=== PATIENT | male | born 1960 | race Two or more races ===

== ENCOUNTER 2020-08-01 12:12 | Emergency (ER) | payer MEDICARE, SELFPAY ==
[2020-08-01 12:50] VITALS: BP 130/79; PULSE 103; RESP 16; TEMP 36.6; O2SAT 100
--- NOTE | 2020-08-01 12:58 | ED.GENADULT ---
HPI - General Adult General Chief complaint: Extremity Injury, Lower Stated complaint: Right foot toe pain Time Seen by Provider: 08/01/20 12:58 Source: patient and RN notes reviewed Mode of arrival: ambulatory Limitations: no limitations History of Present Illness HPI narrative: 60-year-old Roman Catholic male presents with right great toe, swelling, erythema, and pain for the past 3 weeks days. Eddie says he had a pedicure and redness and swelling started, currently on Clindamycin (for 3 days) per his PMD. Numbness and tingling to toes 1-3 intermittently. No pain with weight bearing. No radiation of pain. No loss of mobility. No exacerbating factors. Relieving factor is activity. No fever or chills. No suspected foreign body. The patient reports he have not been diagnosed with COVID-19. The patient reports he is not waiting for the results of a COVID-19 lab test. The patient reports he do not have chills, weakness, or fatigue. The patient reports he do not have a new or worsening cough or shortness of breath. Denies chest pain. The patient reports he do not have any rhinorrhea, congestion, loss of taste, sore throat, nausea, vomiting, abdominal pain, and diarrhea. Tolerating po intake well. Denies recent traveling. Denies concerns for COVID-19 or exposures been home with limited outdoor exposure except for essential household needs and return home. At this time, patient is not suspected of having COVID-19. Some parts of this dictation were generated by voice recognition software and may contain typographical and/or grammatical inaccuracies. Related Data Home Medications Medication Instructions Recorded Confirmed clindamycin HCl 300 mg PO Q8H 08/01/20 08/01/20 lisinopril 10 mg PO DAILY 08/01/20 08/01/20 metformin 1,000 mg PO BID 08/01/20 08/01/20 Allergies Allergy/AdvReac Type Severity Reaction Status Date / Time No Known Allergies Allergy Verified 08/01/20 12:21 Review of Systems Review of Systems: Narrative: CONSTITUTIONAL: Denies fever, chills, sweats. EYES: Denies visual changes, redness, discharge. ENT: Denies rhinorrhea, congestion, sore throat, otalgia. CARDIOVASCULAR: Denies chest pain, palpitations, edema. RESPIRATORY: Denies dyspnea, wheezing, cough. GASTROINTESTINAL: Denies abdominal pain, nausea, vomiting, diarrhea. SKIN: Denies rash or itching. MUSCULOSKELETAL: Denies acute back pain or myalgia. Complains of RT great toe swelling, erythema, and tenderness. Numbness and tingling to toes 1-3. NEUROLOGIC: Denies numbness or focal weakness. PSYCHIATRIC: Denies anxiety or depression. All systems reviewed & are unremarkable except as noted in HPI and below PMFSH Past Medical History Medical History (Updated 08/01/20 @ 13:21 by LAMIN Cuevas) Back pain Diabetes Hypertension Surgical History Surgical History (Updated 08/01/20 @ 13:21 by LAMIN Cuevas) History of knee surgery meniscus surgery bilateral History of spinal surgery X3 Family History Family History (Updated 08/01/20 @ 13:22 by LAMIN Cuevas) Father , ole age No problems noted. Mother , old age No problems noted. Social History Social History (Updated 08/01/20 @ 13:25 by LAMIN Cuevas) Smoking status: Former smoker Tobacco type: cigarettes Second hand tobacco smoke exposure: No Smoking end date: 10/10/11 Alcohol intake: never Substance use: never Living arrangements: with family Occupation/Education: other Additional occupation/education comments: disable Gender identity (if verbalized by the patient): Male Comments At time of signature, agree with nurse past medical, surgical, social, and family history. There is relevant patient's past medical history pertinent to the presenting complaint, no relevant family history pertinent to the presenting complaint. Exam Narrative: Exam Narrative: GENERAL: This is a well-nourished, w
== END 2020-08-01 13:21 | disposition home or self-care (01) ==
PROVIDERS: Emergency Provider Nurse Practitioner Family; PCP Family Medicine
DX: G60.9 Hereditary and idiopathic neuropathy, unspecified (principal); Z87.891 Personal history of nicotine dependence; E11.9 Type 2 diabetes mellitus without complications; I10 Essential (primary) hypertension
CPT/HCPCS: 99201; G0463

== ENCOUNTER 2020-08-22 07:48 | Outpatient (CLI) | payer MEDICARE, SELFPAY ==
--- NOTE | ~2020-08-22 | US_ITS ---
EXAMINATION: US art doppler w press LE BI DATE: 08/22/2020 09:15 INDICATION: Peripheral arterial occlusive disease. Bilateral lower limb toe numbness. TECHNIQUE: Segmental pressures and plethysmographic and Doppler waveforms of the brachial and lower e xtremity arteries were obtained. COMPARISON: None. FINDINGS: Right and left brachial artery pressures of 122 mm Hg and 129 mm Hg, respectively, are concordant (no rmal difference <= 30 mmHg). The right and left high-thigh pressure indices are decreased measuring 0 .61 and 0.94, respectively (normal > 1.2). The right ankle-brachial index (ABAD) is 0.52 (normal >= 0.9-1). The right great toe-brachial index (T BI, normal >= 0.6-0.8) was unable to be obtained with no discernible pulses at the right first-fifth toes. The right lower extremity segmental pressure gradients are decreased between the right below-th e-knee popliteal artery and the arteries at the right ankle (normal gradients <= 20-30 mmHg between a djacent levels on the same leg or the same levels on the two legs). Arterial waveforms are triphasic at the right common femoral artery and biphasic more distally. There are brisk systolic upstrokes at the right common femoral and superficial femoral arteries with mildly broadened systolic peaks with s lightly decreased but still normal systolic upstrokes in the right popliteal, posterior tibial and do rsalis pedis arteries. The left ABAD is 0.74. The left TBI is is unable to be obtained with no pulses in the left first-third and fifth toes. The left lower extremity segmental pressure gradients are normal. Arterial waveforms are biphasic throughout with progressive broadening of the systolic peaks and borderline delayed ups trokes at the left posterior tibial and dorsalis pedis arteries. There is significant broadening of t he systolic peaks and delayed upstroke in the still discernible arterial waveform at the left fourth toe. IMPRESSION: 1. Likely multifocal peripheral arterial occlusive disease with moderately decreased right and mildly decreased left high thigh pressure indices, moderate to severely decreased right and moderately decr eased left ABIs and no discernible pulses at the majority of the bilateral toes suggesting disease minerva th in the aortobiiliac region as well as along both lower limbs. Reviewed, dictated and finalized at location [facility]. [employer]ER IMPRESSION: 1. Likely multifocal peripheral arterial occlusive disease with moderately decr eased right and mildly decreased left high thigh pressure indices, moderate to severely decreased right and moderately decreased left ABIs and no discernible pulses at the majority of the bilateral toes suggesting disease both in the aor tobiiliac region as well as along both lower limbs.
== END 2020-08-22 07:49 | disposition home or self-care (01) ==
PROVIDERS: PCP Family Medicine; Visit Provider Podiatrist Foot & Ankle Surgery
DX: I70.203 Unspecified atherosclerosis of native arteries of extremities, bilateral legs (principal)
CPT/HCPCS: 93923

== ENCOUNTER 2021-09-22 09:28 | Outpatient (RCR) | payer MEDICARE, SELFPAY | END 2021-11-26 06:48 | disposition home or self-care (01) | LOC: ANHDMC 09:28 | PROVIDERS: PCP Family Medicine; Visit Provider Family Medicine | DX: E11.65 Type 2 diabetes mellitus with hyperglycemia (principal); Z71.3 Dietary counseling and surveillance | CPT/HCPCS: 97804; 99199 ==

== ENCOUNTER 2023-06-09 09:48 | Outpatient (CLI) | payer MEDICARE, SELFPAY ==
--- NOTE | ~2023-06-09 | XR_ITS ---
Right foot Technique: AP and lateral views were obtained. Clinical History: Pain Findings: No acute fracture or dislocation is seen. Osseous alignment is anatomic. Joint spaces are p reserved without erosive or degenerative change. Soft tissues are unremarkable. Impression: Unremarkable right foot radiographs. Reviewed, dictated and finalized at location . Impression: Unremarkable right foot radiographs.
--- NOTE | ~2023-06-09 | XR_ITS ---
Left foot Technique: AP and lateral views were obtained. Clinical History: Pain Findings: No acute fracture or dislocation is seen. Osseous alignment is anatomic. Joint spaces are p reserved without erosive or degenerative change. Soft tissues are unremarkable. Impression: Unremarkable left foot radiographs. Reviewed, dictated and finalized at location . Impression: Unremarkable left foot radiographs.
== END 2023-06-09 09:49 | disposition home or self-care (01) ==
PROVIDERS: PCP Family Medicine; Visit Provider Pain Medicine Interventional Pain Medicine
DX: M79.671 Pain in right foot (principal); M79.672 Pain in left foot
CPT/HCPCS: 73620

== ENCOUNTER 2023-10-25 08:06 | Outpatient (CLI) | payer MEDICARE, MEDICAID, SELFPAY ==
--- NOTE | ~2023-10-25 | CT_ITS ---
CT of the Abdomen: Indication: Renal cysts Technique: 2.5 mm axial scans were obtained through the abdomen prior to and following intravenous a dministration of 100 cc of Omnipaque 350. Dose reduction technique was used on this scan by utilizing automated exposure control and iterative reconstruction technique. The dose-length product (DLP) was 2054.01 mGy-cm. Findings: Scans through the lung bases demonstrate focal scarring at the lingula. There is diffuse fatty infiltration of liver. Cholecystectomy clips are present. The spleen, pancreas , left adrenal gland, and left kidney are within normal limits. 1.5 cm low-density right adrenal nodu le is most compatible with adenoma. 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 There are atheroscler otic calcifications of the aorta. No lymphadenopathy. Visualized bowel loops are unremarkable. No ascites. Impression: 1 cm right renal angiomyolipoma. 1.5 cm right adrenal nodule, most compatible with adenoma. Diffuse fatty infiltration of the liver. Reviewed, dictated and finalized at [facility]. [employer] TECHNICIAN Impression: 1 cm right renal angiomyolipoma. 1.5 cm right adrenal nodule, most compatible with adenoma. Diffuse fatty infiltration of the liver.
[2023-10-25 08:26] LABS: Estimated Glomerular Filt Rate > 60
== END 2023-10-25 08:07 | disposition home or self-care (01) ==
PROVIDERS: PCP Physician Assistant; Visit Provider Urology
DX: D17.71 Benign lipomatous neoplasm of kidney (principal); E27.9 Disorder of adrenal gland, unspecified; K76.0 Fatty (change of) liver, not elsewhere classified; Q61.02 Congenital multiple renal cysts
CPT/HCPCS: 74170; Q9967